=== PATIENT | male | born 1965 | race Caucasian/White ===

== ENCOUNTER 2022-04-15 10:03 | Day surgery (SDC) | payer BC ==
[~2022-04-15 10:03] MED LIST: Lactated Ringers 1,000 ML IV SCH
[2022-04-15] MEDS ORDERED: fentaNYL 100 MCG/2 ML SDV ONE (10:14)
[2022-04-15] MEDS ORDERED: Propofol 200 MG/20 ML SDV ONE ×2 (10:14→11:30)
== END 2022-04-15 13:25 | disposition home or self-care (01) ==
LOC: VM.SDS 10:03
PROVIDERS: ATTEND Surgery
DX: R19.5 Other fecal abnormalities (principal)
CPT/HCPCS: 00811; 82947; J2704; J3010; J7120

== ENCOUNTER 2023-04-07 18:20 | Emergency (ER) | payer BC, OTHER ==
[2023-04-07] MEDS ORDERED: Take Home: Acetaminophen/HYDROcodone 325-5 MG, 5 Tab Pack PO ONE (19:02)
== END 2023-04-07 19:10 | disposition home or self-care (01) ==
LOC: VM.ED 18:20
DX: S63.92XA Sprain of unspecified part of left wrist and hand, initial encounter (principal); I10 Essential (primary) hypertension; E11.9 Type 2 diabetes mellitus without complications; E66.9 Obesity, unspecified; Z79.82 Long term (current) use of aspirin; Z79.899 Other long term (current) drug therapy; Z68.34 Body mass index [BMI] 34.0-34.9, adult; W00.0XXA Fall on same level due to ice and snow, initial encounter
CPT/HCPCS: 73030; 99283; A9270